=== PATIENT | female | born 1980 | race Caucasian/White ===

== ENCOUNTER 2020-10-06 15:08 | Emergency (ER) | payer OTHER ==
--- NOTE | 2020-10-06 15:24 | EDM.PDOC ---
<Anuj Roche - Last Filed: 10/06/20 19:43> ED HPI GENERAL MEDICAL PROBLEM - General Chief Complaint: Cardiovascular Problem Stated Complaint: RAPID HEART RATE Time Seen by Provider: 10/06/20 15:22 - History of Present Illness INITIAL COMMENTS - FREE TEXT/NARRATIVE: 40-year-old female presents to the emergency room with a rapid heart rate. This is been going on for a while today the patient is not really symptomatic with this however she noticed when she held her hand to her heart she can feel it beating pretty fast. Upon arrival here she is in mild sinus tach product arrival here pulse was 136 the time my evaluation pulse is in the 120s and currently it is between 105 and 115. She states she is drinking less water than normal. The patient is diabetic on insulin her blood sugar upon arrival here is 160 according to her own monitor on her insulin pump. Patient has a history of hypothyroidism and is on thyroid replacement therapy. This rapid heart rate is not associated with any breathing difficulties shortness of breath or chest discomfort. - Related Data Allergies Allergy/AdvReac Type Severity Reaction Status Date / Time ciprofloxacin [From Cipro] Allergy Intermediate Hives Verified 10/06/20 19:46 Home Meds: Home Meds Levothyroxine Sodium [Synthroid] 175 mcg PO 6XDAY 10/06/20 [History] Multivit,Iron,Minerals/Lutein [Essential Balance] 1 tab PO DAILY 10/06/20 [History] Potassium Chloride [Klor-Con M20] 20 meq PO BID #6 tab.er 10/06/20 [Rx] atorvaSTATin Calcium [Lipitor] 40 mg PO DAILY 10/06/20 [History] metFORMIN [Glucophage XR] 1 g PO BID 10/06/20 [History] Social & Family History - Tobacco Use Tobacco Use Status *Q: Never Tobacco User - Caffeine Use Caffeine Use: Reports: None - Recreational Drug Use Recreational Drug Use: No ED ROS GENERAL - Review of Systems Review Of Systems: See Below Constitutional: Reports: No Symptoms HEENT: Reports: No Symptoms Respiratory: Reports: No Symptoms. Denies: Shortness of Breath Cardiovascular: Reports: Other (Rapid heart rate). Denies: Chest Pain, Blood Pressure Problem Endocrine: Reports: No Symptoms GI/Abdominal: Reports: No Symptoms Neurological: Reports: No Symptoms ED EXAM, GENERAL - Physical Exam Exam: See Below Exam Limited By: No Limitations General Appearance: Alert, No Apparent Distress Head: Atraumatic, Normocephalic Neck: Normal Inspection, Supple, Non-Tender, Full Range of Motion. No: Lymphadenopathy (L), Lymphadenopathy (R), Thyromegaly Respiratory/Chest: No Respiratory Distress, Lungs Clear, Normal Breath Sounds Cardiovascular: No Edema, No Murmur, Tachycardia (Cardia mild to moderate) GI/Abdominal: Normal Bowel Sounds, Soft, Non-Tender, No Organomegaly Neurological: Alert, Oriented, Normal Cognition Course - Re-Assessments/Exams Free Text/Narrative Re-Assessment/Exam: 10/06/20 17:04 Patient's potassium is significantly decreased at 2.8. Magnesium is also low at 1.5. We will give 4 g of mag IV 40 mEq of oral potassium now and will repeat in a couple hours. She is also prerenal with an elevated anion gap and BUN. She received a liter of fluid already we will give her second liter of fluid now. EKG showed sinus tachycardia rate 136 with a prolonged QT interval 10/06/20 19:43 At this time is change of shift the patient's anticipated discharge instructions or prescriptions have been done. Dr. Clay will reevaluate the situation and a follow-up EKG when the magnesium is near completely infused. And discharge as planned if appropriate. Departure - Departure Disposition: Home, Self-Care 01 Clinical Impression: Sinus tachycardia, Hypokalemia, Hypomagnesemia Prescriptions: Potassium Chloride [Klor-Con M20] 20 meq PO BID #6 tab.er Referrals: Tarah Moreno PA-C [Primary Care Provider] - Forms: ED Department Discharge Additional Instructions: Return to the emergency room with any questions problems or worsening symptoms. 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 Follow-up with your regular healthcare provider this next week for recheck. If this rapid heart rate continues you may need to have a echocardiogram, or an ultrasound of your heart done and outpatient heart monitoring to have a better idea of exactly what is going on and then possible cardiology follow-up. Her TSH was checked today and found to be a little low, however this may be where your subeditor wants it it is 0.105. Call and discuss this with your subeditor as soon as their office is open. Sepsis Event Note (ED) - Evaluation Sepsis Screening Result: No Definite Risk <Amando Clay - Last Filed: 10/06/20 23:57> #1 Interpretation EKG Date: 10/06/20 Time: 15:14 Rhythm: Other (Sinus tachycardia) Rate (Beats/Min): 136 [place]: Normal P-Wave: Enlarged (LAE) QRS: Normal ST-T: Normal QT: Prolonged (QTc 541 ms) #2 Interpretation EKG Date: 10/06/20 Time: 23:47 Rhythm: NSR Rate (Beats/Min): 98 [place]: Normal P-Wave: Enlarged (LAE) QRS: Normal ST-T: Normal QT: Normal Course - Vital Signs Last Recorded V/S: Last Vital Signs Temp 36.6 C 10/06/20 15:14 Pulse 120 H 10/06/20 15:37 Resp 16 10/06/20 15:14 BP 126/86 10/06/20 15:37 Pulse Ox 100 10/06/20 15:14 - Orders/Labs/Meds Orders: Active Orders 24 hr Category Date Time Status EKG Documentation Completion [RC] STAT Care 10/06/20 15:25 Active EKG Documentation Completion [RC] STAT Care 10/06/20 19:37 Active Ang Chest [CT] Stat Exams 10/06/20 23:03 Taken Sodium Chloride 0.9% [Normal Saline] 1,000 ml Med 10/06/20 23:15 Active IV ASDIRECTED Sodium Chloride 0.9% [Normal Saline] 100 ml Med 10/06/20 23:30 Active IV ASDIRECTED Medication Orders Sodium Chloride (Normal Saline) 1,000 mls @ 100 mls/hr IV ASDIRECTED SOLO Sodium Chloride (Normal Saline) 100 mls @ 60 mls/hr IV ASDIRECTED SOLO Labs: Laboratory Tests 10/06/20 10/06/20 10/06/20 Range/Units 15:10 15:10 22:00 WBC 8.92 (3.98-10.04) K/mm3 RBC 4.17 (3.98-5.22) M/mm3 Hgb 12.7 (11.2-15.7) gm/dl Hct 38.3 (34.1-44.9) % MCV 91.8 (79.4-94.8) fl MCH 30.5 (25.6-32.2) pg MCHC 33.2 (32.2-35.5) g/dl RDW Std Deviation 39.6 (36.4-46.3) fL Plt Count 264 (182-369) K/mm3 MPV 10.3 (9.4-12.3) fl Neut % (Auto) 55.9 (34.0-71.1) % Lymph % (Auto) 34.8 (19.3-51.7) % [place] % (Auto) 7.8 (4.7-12.5) % Eos % (Auto) 1.2 (0.7-5.8) Baso % (Auto) 0.2 (0.1-1.2) % Neut # (Auto) 4.98 (1.56-6.13) K/mm3 Lymph # (Auto) 3.10 (1.18-3.74) K/mm3 [place]yer # (Auto) 0.70 H (0.24-0.36) K/mm3 Eos # (Auto) 0.11 (0.04-0.36) K/mm3 Baso # (Auto) 0.02 (0.01-0.08) K/mm3 D-Dimer, Quantitative 0.95 H (0.19-0.50) mg/L Sodium 135 L (136-145) mEq/L Potassium 2.8 L (3.5-5.1) mEq/L Chloride 99 (98-107) mEq/L Carbon Dioxide 21 (21-32) mEq/L Anion Gap 17.8 H (5-15) BUN 13 (7-18) mg/dL Creatinine 0.9 (0.55-1.02) mg/dL Est Cr Clr Drug Dosing 79.99 mL/min Estimated GFR (MDRD) > 60 (>60) mL/min BUN/Creatinine Ratio 14.4 (14-18) Glucose 155 H (74-106) mg/dL Calcium 9.3 (8.5-10.1) mg/dL Magnesium 1.5 L (1.8-2.4) mg/dl Total Bilirubin 1.0 (0.2-1.0) mg/dL AST 16 (15-37) U/L ALT 22 (14-59) U/L Alkaline Phosphatase 30 L (46-116) U/L Total Protein 7.6 (6.4-8.2) g/dl Albumin 4.2 (3.4-5.0) g/dl Globulin 3.4 gm/dL Albumin/Globulin Ratio 1.2 (1-2) TSH 3rd Generation 0.105 L (0.358-3.74) uIU/mL 10/06/20 Range/Units 22:00 WBC (3.98-10.04) K/mm3 RBC (3.98-5.22) M/mm3 Hgb (11.2-15.7) gm/dl Hct (34.1-44.9) % MCV (79.4-94.8) fl MCH (25.6-32.2) pg MCHC (32.2-35.5) g/dl RDW Std Deviation (36.4-46.3) fL Plt Count (182-369) K/mm3 MPV (9.4-12.3) fl Neut % (Auto) (34.0-71.1) % Lymph % (Auto) (19.3-51.7) % [place] % (Auto) (4.7-12.5) % Eos % (Auto) (0.7-5.8) Baso % (Auto) (0.1-1.2) % Neut # (Auto) (1.56-6.13) K/mm3 Lymph # (Auto) (1.18-3.74) K/mm3 [place] # (Auto) (0.24-0.36) K/mm3 Eos # (Auto) (0.04-0.36) K/mm3 Baso # (Auto) (0.01-0.08) K/mm3 D-Dimer, Quantitative (0.19-0.50) mg/L Sodium (136-145) mEq/L Potassium 3.7 (3.5-5.1) mEq/L Chloride (98-107) mEq/L Carbon Dioxide (21-32) mEq/L Anion Gap (5-15) BUN (7-18) mg/dL Creatinine (0.55-1.02) mg/dL Est Cr Clr Drug Dosing mL/min Estimated GFR (MDRD) (>60) mL/min BUN/Creatinine Ratio (14-18) Glucose (74-106) mg/dL Calcium (8.5-10.1) mg/dL Magnesium 2.1 (1.8-2.4) mg/dl Total Bilirubin (0.2-1.0) mg/dL AST (15-37) U/L ALT (14-59) U/L Alkaline Phosphatase (46-116) U/L Total Protein (6.4-8.2) g/dl Albumin (3.4-5.0) g/dl Globulin gm/dL Albumin/Globulin Ratio (1-2) TSH 3rd Generation (0.358-3.74) uIU/mL Meds: Medications Generic Name Dose Route Start Last Admin Trade Name Freq PRN Reason Stop Dose Admin Sodium Chloride 1,000 mls @ 100 mls/hr 10/06/20 23:15 Normal Saline IV ASDIRECTED SOLO Sodium Chloride 100 mls @ 60 mls/hr 10/06/20 23:30 Normal Saline IV ASDIRECTED SOLO Discontinued Medications Generic Name Dose Route Start Last Admin Trade Name Freq PRN Reason Stop Dose Admin Lactated Ringer's 1,000 mls @ 999 mls/hr 10/06/20 15:39 10/06/20 15:44 Ringers, Lactated IV 10/06/20 16:39 999 mls/hr .BOLUS ONE Administration Magnesium Sulfate 2 gm in 50 mls @ 25 mls/hr 10/06/20 17:00 Magnesium Sulfate In Water Premix IV Q1H SOLO Lactated Ringer's 1,000 mls @ 999 mls/hr 10/06/20 16:56 10/06/20 17:01 Ringers, Lactated IV 10/06/20 17:56 999 mls/hr .BOLUS ONE Administration Magnesium Sulfate 4 gm/ Premix 50 mls @ 12.5 mls/hr 10/06/20 16:58 10/06/20 17:01 IV 10/06/20 20:57 12.5 mls/hr ONETIME ONE Administration Iopamidol 100 ml 10/06/20 23:18 10/06/20 23:34 Isovue-370 (76%) IVPUSH 10/06/20 23:19 100 ml ONETIME ONE Administration Potassium Chloride 40 meq 10/06/20 16:53 10/06/20 16:57 Klor-Con M20 PO 10/06/20 16:54 40 meq ONETIME ONE Administration Potassium Chloride 40 meq 10/06/20 19:27 Klor-Con M20 PO 10/06/20 19:28 ONETIME ONE Sodium Chloride 10 ml 10/06/20 23:18 10/06/20 23:34 Saline Flush FLUSH 10/06/20 23:19 10 ml ONETIME ONE Administration - Re-Assessments/Exams Free Text/Narrative Re-Assessment/Exam: 10/06/20 22:09 The patient is still tachycardic at 113 bpm. I therefore ordered a D-dimer. I spoke to lab, and the blood that was drawn earlier this afternoon is too old to run a D-dimer, therefore they will come to draw a new blood sample. So long as she is being stuck for that, high also added a potassium and magnesium level. 10/06/20 23:02 The patient's potassium and magnesium are now normal, however, her D-dimer returned somewhat elevated at 0.95. I discussed this with her. Typically, when patients have pulmonary emboli, their D-dimer is quite high, usually over 2, however, I cannot say definitively that she does not have a pulmonary embolus as the cause of her continued tachycardia, and therefore offered a CT angiogram of the chest to evaluate for PE. She would like to proceed with that. 10/06/20 23:52 The patient's repeat ECG straits left atrial enlargement, and is otherwise unremarkable. Her QTc is now within normal limits. CT angiogram of the chest is read by [facility] as: 1. No pulmonary embolism. 2. Indeterminate left axillary adenopathy. 10/06/20 23:[address] results discussed with the patient. I cannot say why she had tachycardia - perhaps she was a bit dry, therefore I recommended that she stay adequately hydrated. She is fit to discharge home. Departure - Departure Time of Disposition: 23:57 Sepsis Event Note (ED) - Focused Exam Vital Signs: Vital Signs Temp Pulse Resp BP Pulse Ox 10/06/20 15:37 120 H 126/86 10/06/20 15:36 116 H 122/89 10/06/20 15:35 117 H 136/84 10/06/20 15:34 114 H 123/75 10/06/20 15:14 36.6 C 145 H 16 132/84 100 - My Orders Last 24 Hours: My Active Orders 10/06/20 23:03 Ang Chest [CT] Stat 10/06/20 23:15 Sodium Chloride 0.9% [Normal Saline] 1,000 ml IV ASDIRECTED - Assessment/Plan Last 24 Hours: My Active Orders 10/06/20 23:03 Ang Chest [CT] Stat 10/06/20 23:15 Sodium Chloride 0.9% [Normal Saline] 1,000 ml IV ASDIRECTED
[2020-10-06] MEDS ORDERED: Lactated Ringers 1,000 ML IV ONE ×2 (15:39→16:56)
[2020-10-06] MEDS ORDERED: Potassium Chloride 20 MEQ Tab.ER PO ONE ×2 (16:53→19:27)
[2020-10-06] MEDS ORDERED: Magnesium Sulfate/Water 4 GM in Premix Bag 1 BAG IV ONE (16:58)
[2020-10-06] MEDS ORDERED: Magnesium Sulfate/Water 2 GM/50 ML BAG IV SCH (17:00)
[2020-10-06] MEDS ORDERED: Sodium Chloride 0.9% 1,000 ML IV SCH (23:15)
[2020-10-06] MEDS ORDERED: Iopamidol 755 Mg/ML 100 ML Bottle IVPUSH ONE (23:18)
[2020-10-06] MEDS ORDERED: Sodium Chloride 0.9% 10 ML Syringe FLUSH ONE (23:18)
[2020-10-06] MEDS ORDERED: Sodium Chloride 0.9% 100 ML IV SCH (23:30)
--- NOTE | 2020-10-07 14:31 | CT ---
CT chest Technique: Multiple axial sections were obtained through the chest. Intravenous contrast was utilized. Study has been performed as a pulmonary angiogram protocol. Findings: Pulmonary arteries are fairly well opacified. Thoracic aorta shows no aneurysm. Mediastinum shows no adenopathy. Bilateral axillary lymph nodes are seen which on the left side are slightly increased in size. Visualized upper abdominal structures show nothing acute. Lung window settings were reviewed and show no acute parenchymal change. No pleural effusions are appreciated. No pneumothorax is appreciated. Bone window settings were reviewed which shows no acute osseous finding. Impression: 1. Slightly prominent lymph nodes within the left axillary region. These are nonspecific and correlate by physical exam. 2. No findings of pulmonary embolism. Nothing acute is otherwise seen on CT study of the chest. Diagnostic code #9 I agree with preliminary report from [facility], finalized on 10/07/20, 12:49 AM Central Daylight Time
== END 2020-10-07 00:08 | disposition home or self-care (01) ==
LOC: JD.ED 15:08
DX: E87.6 Hypokalemia (principal); E83.42 Hypomagnesemia; R00.0 Tachycardia, unspecified; Z88.1 Allergy status to other antibiotic agents; Z79.899 Other long term (current) drug therapy
CPT/HCPCS: 36415; 71275; 80053; 83735; 84132; 84443; 85025; 85379; 93005; 96365; 96366; 99285; A9270; J3475; J7120; Q9967; 93010; 99284